=== PATIENT | male | born 1950 | race Caucasian/White ===

== ENCOUNTER 2017-04-15 08:24 | Inpatient (IN) | payer BC, OTHER ==
--- NOTE | 2017-04-14 17:27 | GHP ---
[f rep st] PREOP HISTORY AND PHYSICAL DATE OF ADMISSION: 04/15/2017 HISTORY: The patient is a 67-year-old man who has had persistent and deteriorating right knee dysfun ction. He injured the knee early college age. He has had medial and lateral arthrotomies, cartilage was addressed. Through the years he has been an active man, but now with exercise, especially any i mpact-loading on a hard surface, the knee becomes very swollen and painful. An MRI was obtained. He has fairly advanced arthritis in the knee, worse in the medial compartment. There are areas of full -thickness cartilage loss. After review of his treatment options, he is interested in proceeding wit h a right total knee arthroplasty. ALLERGIES: No current drug allergies. MEDICATIONS: Include simvastatin 40 mg p.o. daily, tobramycin eye drops suspension. 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 REVIEW OF SYSTEMS: Positive from a cardiovascular standpoint, for elevated cholesterol, treated medi shaista. PHYSICAL EXAM: GENERAL: The patient is a well-developed well-nourished male in no apparent distress . HEAD AND NECK: Head normocephalic, atraumatic. CHEST: Clear. CARDIOVASCULAR: Regular rate and rhythm. ABDOMEN: Soft. NEUROLOGIC: He is alert and oriented x3. EXTREMITIES: Examination of th e right knee shows varus alignment, and he has a flexion contracture between 5 and 10 degrees. He is only flexing about 100 degrees. He has medial bone prominence and swelling, a small effusion. Lach man test with a soft endpoint. There is also pseudolaxity medially. There is mild medial joint line tenderness. No obvious posterior sag. Neurovascular exam is intact. IMAGING: X-ray, right knee shows tricompartment osteoarthritis, most notably in the medial compartme nt, with significant joint space narrowing. There is bone spurring and squaring of the condyles, ost eophytes of the patellofemoral space, varus alignment. IMPRESSION: Right knee osteoarthritis. PLAN: Right total knee arthroplasty. Benefits and risks of surgery have been reviewed with the brianna ent, including the risk of infection, damage to blood vessel or nerve, failure or loosening of compon ents, and need for revision. He understands there is a risk of blood clot in the leg or lungs, risk of bleeding and need for transfusion, and he has been apprised of the rigorous nature of the rehabili tation. He has signed his consent form and wishes to proceed. /[id number]/MODL
[~2017-04-15 08:24] MED LIST: POVIDONE-IODINE 20 ML in SODIUM CL IRRIG SOLUTION 500 ML IRR ONE; ROPIVACAINE 0.2% 80 MG, EPINEPHrine 0.2 MG, KETOROLAC TROMETHAMINE 30 MG in SYRINGE 0 ML IU ONE; TRANEXAMIC ACID 880 MG in NS 100 ML IV ONE
[2017-04-15] MEDS ORDERED: ceFAZolin 1 GM/5 ML SYR ONE (08:49)
[2017-04-15] MEDS ORDERED: DEXAMETHASONE 4 MG/ML VIAL IVP ONE (08:56)
[2017-04-15] MEDS ORDERED: FAMOTIDINE 20 MG TAB PO ONE (08:56)
[2017-04-15] MEDS ORDERED: ceFAZolin 2 GM/SWFI 2 GM/20 ML SYR IVP ONE (08:56)
[2017-04-15] MEDS ORDERED: ACETAMINOPHEN 325 MG TAB PO ONE (08:56)
[2017-04-15] MEDS ORDERED: LR 1,000 ML IV ONE (08:57)
[2017-04-15] MEDS ORDERED: LIDOCAINE 1% 2 ML INJ ID PRN (08:57)
[2017-04-15] MEDS ORDERED: fentaNYL 100 MCG/2 ML INJ ONE (10:21)
[2017-04-15] MEDS ORDERED: PROPOFOL 200 MG/20 ML VIAL ONE (10:21)
[2017-04-15] MEDS ORDERED: DEXAMETHASONE 4 MG/ML VIAL ONE (10:24)
[2017-04-15] MEDS ORDERED: MIDAZOLAM 2 MG/2 ML VIAL ONE (10:28)
[2017-04-15] MEDS ORDERED: PHENYLEPHRINE HCL 100 MCG/ML SYR ONE (10:59)
--- NOTE | 2017-04-15 11:37 | PDANEPAE ---
ANE History of Present Illness R TKA ANE Past Medical History - Cardiovascular History Hx Hypertension: No Hx Arrhythmias: No Hx Chest Pain: No Hx Coronary Artery / Peripheral Vascular Disease: No Hx CHF / Valvular Disease: No Hx Palpitations: No - Pulmonary History Hx COPD: No Hx Asthma/Reactive Airway Disease: No Hx Recent Upper Respiratory Infection: No Hx Oxygen in Use at Home: No Hx Sleep Apnea: No Sleep Apnea Screening Result - Last Documented: Negative - Neurologic History Hx Cerebrovascular Accident: No Hx Seizures: No Hx Dementia: No - Endocrine History Hx Diabetes: No Obesity: no - Renal History Hx Renal Disorders: No - Liver History Hx Hepatic Disorders: No - Neurological & Psychiatric Hx Hx Neurological and Psychiatric Disorders: No - Cancer History Hx Cancer: No - Congenital Disorder History Hx Congenital Disorders: No - GI History GERD: no Hx Gastrointestinal Disorders: No - Other Health History Other Health History: ROSECA. OSTEOARTHRITIS - Chronic Pain History Chronic Pain: Yes (RT KNEE) - Surgical History Prior Surgeries: LT KNEE SCOPE. RT KNEE REPAIR. TONSILLECTOMY ANE Review of Systems Review of Systems: - Exercise capacity METS (RN): 4 METS ANE Patient History - Allergies Allergies/Adverse Reactions: No Known Allergies Allergy (Unverified 02/28/17 10:51) - Home Medications Home Medications: Aspirin [Aspirin 81mg (*)] 81 mg PO DAILY 02/28/17 [Last Taken 04/08/17] Cholecalciferol Vit D3 [Vitamin D3 (*)] 1,000 units PO DAILY 02/28/17 [Last Taken 04/08/17] Doxycycline Monohydrate [Oracea] 40 mg PO DAILY 02/28/17 [Last Taken 04/08/17] [place]-3 Fatty Acids [Fish Oil 1000 mg (*)] 1,000 mg PO DAILY 02/28/17 [Last Taken 04/08/17] Simvastatin [Zocor] 40 mg PO DAILY 02/28/17 [Last Taken 04/08/17] - NPO status NPO Since - Liquids (Date): 04/14/17 NPO Since - Liquids (Time): 21:00 NPO Since - Solids (Date): 04/14/17 NPO Since - Solids (Time): 19:00 - Smoking Hx Smoking Status: Never smoked Marijuana use: No - Alcohol Use Alcohol Use: Occasionally - Family Anes Hx Family Anes Hx: none ANE Labs/Vital Signs - Vital Signs Blood Pressure: 140/77 Heart Rate: 75 Respiratory Rate: 16 O2 Sat (%): 95 Height: 177.8 cm Weight: 88.451 kg ANE Physical Exam - Airway Neck exam: FROM Mallampati Score: Class 3 Mouth exam: normal dental/mouth exam (upper caps) - Pulmonary Pulmonary: clear to auscultation - Cardiovascular Cardiovascular: regular rate and rhythym - ASA Status ASA Status: II ANE Anesthesia Plan Anesthesia Plan: GA w LMA, spinal Regional Anesthesia: adductor canal FNB
[2017-04-15] MEDS ORDERED: ONDANSETRON 4 MG/2 ML VIAL ONE (12:14)
[2017-04-15] MEDS ORDERED: ROPIVACAINE HCL 150 MG/30 ML INJ ONE (12:36)
[2017-04-15] MEDS ORDERED: NALOXONE HCL 0.4 MG/ML INJ IVP PRN (12:45)
[2017-04-15] MEDS ORDERED: fentaNYL 100 MCG/2 ML INJ IVP PRN (12:45)
[2017-04-15] MEDS ORDERED: LACTULOSE 20 GM/30 ML UDCUP PO PRN (12:50)
[2017-04-15] MEDS ORDERED: ONDANSETRON DISINTEGRATING 4 MG TAB PO PRN (12:50)
[2017-04-15] MEDS ORDERED: BISACODYL 10 MG SUPP PR PRN (12:50)
[2017-04-15] MEDS ORDERED: TEMAZEPAM 15 MG CAP PO PRN (12:50)
[2017-04-15] MEDS ORDERED: PROMETHAZINE HCL 25 MG SUPPR PR PRN (12:50)
[2017-04-15] MEDS ORDERED: DIPHENOXYLATE/ATROPINE LOMOTIL 1 TAB PO PRN (12:50)
[2017-04-15] MEDS ORDERED: PROMETHAZINE HCL 25 MG/ML INJ IVP PRN (12:50)
[2017-04-15] MEDS ORDERED: diphenhydrAMINE 25 MG CAP PO PRN (12:50)
[2017-04-15] MEDS ORDERED: CYCLOBENZAPRINE 10 MG TAB PO PRN (12:50)
[2017-04-15] MEDS ORDERED: MAGNESIUM HYDROXIDE 30 ML UDCUP PO PRN (12:50)
[2017-04-15] MEDS ORDERED: ONDANSETRON 4 MG/2 ML VIAL IVP PRN (12:50)
[2017-04-15] MEDS ORDERED: POLYETHYLENE GLYCOL 3350 17 GM PKT PO PRN (12:50)
[2017-04-15] MEDS ORDERED: METOCLOPRAMIDE 10 MG/2 ML VIAL IVP PRN (12:50)
[2017-04-15] MEDS ORDERED: LR 1,000 ML IV SCH (13:00)
[2017-04-15] MEDS ORDERED: ceFAZolin 2 GM/DEXTROSE 100 ML IV SCH (14:00)
--- NOTE | 2017-04-15 14:04 | GOP ---
[f rep st] OPERATIVE REPORT DATE OF OPERATION: SURGEON: Miles Silvestre MD STORES DESPATCH HAND: CLARA Koch, LSA. ANESTHESIA: Christ Maciel MD. PREOPERATIVE DIAGNOSIS: Right knee osteoarthritis. POSTOPERATIVE DIAGNOSIS: Right knee osteoarthritis. PROCEDURE PERFORMED: Right total knee arthroplasty. FINDINGS: SPECIMENS: Include excised bone. ESTIMATED BLOOD LOSS: Minimal. INDICATIONS: The patient is a 67-year-old male who presents with history, exam, and x-rays consisten t with severe right knee osteoarthritis, right total knee is planned. DESCRIPTION OF PROCEDURE: The patient was taken to the operating room, and a spinal block was provid ed by Dr. Maciel. He was then placed under general anesthetic with laryngeal mask ventilation. He re ceived 2 g of IV Ancef as well as tranexamic acid dose. Tourniquet was fit high on the right thigh. I neutralized his rotation with a pad beneath the right hip. The right lower extremity was prepped and draped free with chlorhexidine in the usual fashion. The limb was elevated, exsanguinated, and t ourniquet inflated to 275 mmHg. I made a longitudinal incision midline, I used a medial parapatellar arthrotomy. Patella was inverted and measured its thickness at 25 mm. I removed 9 mm of cartilage and bone and sized the patella at a 38. I drilled peg holes. With the trial in place, I re-establis hed the patellar thickness and removed rimming osteophytes. I then flexed the knee, drilled a state pilot hole in the distal femur using intramedullary device for the femoral component alignment. I chose a 5 degree valgus cut +2 extra bone resection, and the anterior, posterior, and chamfer cuts were made, including the notch cuts for this bi-cruciate stabilized knee. It was sized to an 8. An 8 componen t was a good fit. I removed any remaining osteophytes. I used an extramedullary device on the tibia . I adjusted the rotation, posterior slope, and depth of cut. I made a perpendicular cut from the p roximal tibia. I sized this to a size 6. I dialed in the rotation and finished the tibial prep. Al l the components were removed. I used jet lavage antibiotic irrigation, and all the components were secured with cement. After the cement had hardened, I did trial reductions. I found that a 10 mm ar ticular insert allowed full extension, excellent roll back in flexion, and appropriate collateral lig ament stability. Patella tracked centrally. The size 10 liner was snapped into place. Antibiotic i rrigation was used, a Betadine rinse as well. The arthrotomy was closed with interrupted figure-of-e ight sutures of 0 M[place]ilene, subcutaneous tissue with 2-0 Monocryl, and the skin with wang. The w ound was dressed with Betadine-soaked Adaptic, 4 x 4, sterile Webril, and a long-leg Akz stocking. COMPLICATIONS: There were no complications. DRAINS: None. COUNTS: All counts were correct. TOURNIQUET TIME: About 1 hour 20 minutes. 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 SUMMARY OF COMPONENTS: This is a [employer] bi-cruciate stabilized knee, Oxinium femur , crosslink poly liner, all components cemented. Femur size 8, tibia size 6, articular insert 10 mm. /[id number]/MODL
[2017-04-15] MEDS: ACETAMINOPHEN 325 MG TAB PO SCH ×2 (17:46→23:33)
[2017-04-15] MEDS: ceFAZolin 2 GM/SWFI 2 GM/20 ML SYR IVP SCH (17:47)
[2017-04-15] MEDS: KETOROLAC 30 MG/1 ML SDV IVP PRN ×2 (18:00→23:32)
[2017-04-15] MEDS: oxyCODONE IR 5 MG TAB PO PRN (21:22)
[2017-04-15] MEDS: SENNOSIDES/DOCUSATE SODIUM TAB PO SCH (21:22)
[2017-04-15] MEDS: ASPIRIN 325 MG TAB PO SCH (21:22)
[2017-04-15] MEDS: FAMOTIDINE 20 MG TAB PO SCH (21:23)
[2017-04-16 00:09] VITALS: RESP 16
[2017-04-16] MEDS: ceFAZolin 2 GM/SWFI 2 GM/20 ML SYR IVP SCH (01:28)
[2017-04-16] MEDS: oxyCODONE IR 5 MG TAB PO PRN ×2 (01:29→08:47)
[2017-04-16 05:04] LABS: HEMATOCRIT 40.6 % (40.0-51.0); HEMOGLOBIN 14.1 g/dL (13.7-17.5)
[2017-04-16] MEDS: ACETAMINOPHEN 325 MG TAB PO SCH (05:16)
--- NOTE | 2017-04-16 07:54 | SOAPPROG ---
SOAP Progress Note Assessment/Plan: Assessment: 04/16/17, POD#1 R TKA, pain controlled, Hct 40 Plan: 04/16/17 07:52 up with PT, home, oxy, asa, home PT Objective: Vital Signs Temp Pulse Resp BP Pulse Ox 36.4 C 64 16 112/67 95 04/16/17 04:00 04/16/17 04:00 04/16/17 04:00 04/16/17 04:00 04/16/17 04:00 Laboratory Results 04/16/17 04:46 04/15/17 04/16/17 04/17/17 05:59 05:59 05:59 Intake Total 3885 500 Output Total 1240 600 Balance 2645 -100 ICD10 Worksheet Patient Problems: Problems Problem Status Onset Osteoarthritis of right knee Acute - ICD10 Problem Qualifiers (1) Osteoarthritis of right knee
--- NOTE | 2017-04-16 07:58 | PDIAF ---
- Diagnosis Diagnosis: right knee osteoarthritis Code Status: Full Code - Medication Management Discharge Medications: Medications to Continue on Transfer Cholecalciferol Vit D3 [Vitamin D3 (*)] 1,000 units PO DAILY 02/28/17 [Last Taken 04/08/17] Doxycycline Monohydrate [Oracea] 40 mg PO DAILY 02/28/17 [Last Taken 04/08/17] [place]-3 Fatty Acids [Fish Oil 1000 mg (*)] 1,000 mg PO DAILY 02/28/17 [Last Taken 04/08/17] Simvastatin [Zocor] 40 mg PO DAILY 02/28/17 [Last Taken 04/08/17] Aspirin [Aspirin 325 mg (*)] 325 mg PO DAILY tab 04/16/17 [Last Taken Unknown] Discharge Medications: Refer to the Discharge Home Medication list for PRN reason. - Orders Services needed: Physical Therapy Diet Recommendation: no restrictions on diet Diet Texture: Regular Texture Diet Kaz Stockings Discontinue Date: 2 weeks Wound Care Instructions: keep knee covered, clean and dry Activity/Weight Bearing Restrictions: WBAT, full Rom - Follow Up Care Current Providers and Referrals: YAIR LLANES [Other] Miles Silvestre MD [Medical Doctor] -
[2017-04-16 07:59] VITALS: BP 120/69; PULSE 73; TEMP 97.8; O2SAT 94
[2017-04-16] MEDS: SENNOSIDES/DOCUSATE SODIUM TAB PO SCH (08:48)
[2017-04-16] MEDS: FAMOTIDINE 20 MG TAB PO SCH (08:48)
[2017-04-16] MEDS: ASPIRIN 325 MG TAB PO SCH (08:48)
[2017-04-16] MEDS ORDERED: Doxycycline Monohydrate [Oracea] 40 MG PO SCH (09:00)
[2017-04-16] MEDS ORDERED: ATORVASTATIN CALCIUM 20 MG TAB PO SCH (09:00)
--- NOTE | 2017-04-16 14:29 | ASMTCMCOM ---
CM Note CM Note Notes: PT wants HHC, referral/orders sent to [facility] in [employer]. Pt medically stable for d/c. Date Signed: 04/16/2017 02:28 PM Electronically Signed By:ALLEGRA Almonte
--- NOTE | 2017-04-16 14:29 | ASDISCHSUM ---
Discharge Information Plan Status:Home with Home Health Medically Cleared to Leave: Discharge Date:04/16/2017 10:12 AM CM D/C Disposition:Home Health Service ADT D/C Disposition:Home Health Service Projected Discharge Date:04/16/2017 11:00 AM Transportation at D/C: Discharge Delay Reason: Follow-Up Date:04/16/2017 11:00 AM Discharge Slot: Final Diagnosis: Placement Information Referral Type:*Home Health Care Services Referral ID:[id number] Provider Name:[facility] [place] Address 1:[address] [address] Phone Number: Address 2: Fax Number: City:[place] Selection Factors: State:[place] Patient Contact Information Contact Name:VIET Relationship: Address:[address] City:[place] Alternate Phone: State/Zip Code:[place] [address] Email: Financial Information Financial Class:HMO and PPO Plans Primary Plan Desc:LATRELL PPO Primary Plan Number:[id number] Secondary Plan Desc: Secondary Plan Number: Assessment Information [facility] CM Progress Note CM Note CM Note Notes: PT wants HHC, referral/orders sent to [facility] in [employer]. Pt medically stable for d/c. Date Signed: 04/16/2017 02:28 PM Electronically Signed By:ALLEGRA Almonte Intervention Information
--- NOTE | 2017-04-16 22:12 | POSTANESTH ---
Post Anesthetic Evaluation Cardiovascular Status: Similar to Pre-Op Cond Respiratory Status: Normal, Stable Level of Consciousness/Mental Status: Can Participate in Eval Pain Control: Adequate, Prn Tx Ordered Nausea/Vomiting Control: Adequate, Prn Tx Ordered Complications Possibly Related to Anesthesia: None Noted
== END 2017-04-16 10:12 | disposition home health service (06) | DRG 470 ==
LOC: F3N 08:24
PROVIDERS: ADMIT Orthopaedic Surgery; ATTEND Orthopaedic Surgery
PROC: 0SRC0J9 Replacement of Right Knee Joint with Synthetic Substitute, Cemented, Open Approach (ICD-10-PCS; principal; 2017-04-15 10:15)
DX: M17.11 Unilateral primary osteoarthritis, right knee (principal); E78.00 Pure hypercholesterolemia, unspecified
CPT/HCPCS: 97110-GP; 97116-GP; 97161-GP; 97165-GO; 97530-GP; C1713; J0171; J0690; J1100; J1885; J2250; J2370; J2405; J2704; J2795; J3010